=== PATIENT | male | born 2000 | race Caucasian/White ===

== ENCOUNTER 2022-03-24 20:53 | Outpatient (REF) | payer MEDICAID, SELFPAY ==
[2022-03-26 10:44] LABS: COVID-19 RT-PCR UVMMC Result Negative (Negative)
== END 2022-03-24 20:54 | disposition home or self-care (01) ==
LOC: LBN 20:53
PROVIDERS: PCP Nurse Practitioner Family; Visit Provider Nurse Practitioner Family
DX: Z20.822 Contact with and (suspected) exposure to COVID-19 (principal)
CPT/HCPCS: U0003